=== PATIENT | male | born 1995 | race Hispanic/Latino ===

== ENCOUNTER 2021-12-23 01:28 | Emergency (ER) | payer OTHER ==
[2021-12-23] MEDS ORDERED: Boostrix 0.5 ML (Tdap) VIAL (>/=7 yrs of age) ONE (03:42)
[2021-12-23] MEDS ORDERED: Lidocaine 1% PF 5 ML VIAL ONE (04:15)
== END 2021-12-23 04:57 | disposition home or self-care (01) ==
LOC: ERS 01:28
DX: S01.112A Laceration without foreign body of left eyelid and periocular area, initial encounter (principal); W06.XXXA Fall from bed, initial encounter
CPT/HCPCS: 12013; 70450; 70486; 90471; 90715